=== PATIENT | female | born 1995 | race African-American/Black ===

== ENCOUNTER 2017-02-10 09:15 | Emergency (ER) | payer MEDICAID, OTHER ==
[~2017-02-10] VITALS: Ht 180.3 cm; Wt 63.0 kg
[2017-02-10] MEDS ORDERED: LIDOCAINE HCL 1% 20ML VIAL (Pyxis) INJ MC ONE (10:00)
[2017-02-10] MEDS ORDERED: BACITRACIN ZINC OINT UDPKT TOP ONE (10:00)
[2017-02-10] MEDS ORDERED: ACETAMINOPHEN WITH CODEINE 300/30MG TABLET PO ONE (10:00)
[2017-02-10] MEDS ORDERED: TETANUS, DIPHTHERIA, PERTUSSIS VAC/PF 0.5ML (>7YR OLD) IM ONE (10:00)
[2017-02-10 10:30] VITALS: BP 117/60
== END 2017-02-10 11:20 | disposition home or self-care (01) ==
LOC: ER 09:49
DX: S01.412A Laceration without foreign body of left cheek and temporomandibular area, initial encounter (principal); X58.XXXA Exposure to other specified factors, initial encounter; Y93.89 Activity, other specified; Y92.89 Other specified places as the place of occurrence of the external cause; Y99.8 Other external cause status
CPT/HCPCS: 12011; 90471; 90715; 99284; J3490; X7700; Z7610

== ENCOUNTER 2017-02-20 10:29 | Emergency (ER) | payer MEDICAID ==
[~2017-02-20] VITALS: Ht 180.3 cm; Wt 64.0 kg
[2017-02-20 11:10] VITALS: BP 101/54
== END 2017-02-20 11:45 | disposition home or self-care (01) ==
LOC: ER 10:29
DX: Z48.02 Encounter for removal of sutures (principal)
CPT/HCPCS: 99281

== ENCOUNTER 2018-01-13 22:44 | Emergency (ER) | payer MEDICAID ==
[~2018-01-13] VITALS: Ht 180.3 cm; Wt 75.0 kg
[2018-01-14] MEDS ORDERED: DICYCLOMINE 10 MG/5 ML ORAL SYR PO STA (01:35)
[2018-01-14] MEDS ORDERED: MAGNESIUM/ALUMINUM HYDROXIDE/SIMETHICONE 30ML UDC PO STA (01:35)
[2018-01-14] MEDS ORDERED: PYRIDOXINE 100 MG/ML 1ML IM ONE (01:45)
[2018-01-14] MEDS ORDERED: SODIUM CHLORIDE 0.9% 1000ML BAG (SEPSIS BOLUS) IV ONE (01:45)
[2018-01-14 02:20] LABS: BASOPHILS % 0.2 % (0.0-2.0); HEMATOCRIT. 40.9 % (36.0-48.0); HEMOGLOBIN. 14.5 g/dL (12.0-16.0); LYMPHOCYTES % 14.1 % (20.0-50.0); MEAN CORPUSCULAR HEMOGLOBIN 31.3 pg (28.0-32.0); MEAN CORPUSCULAR VOLUME 88.1 fL (81.0-99.0); MEAN PLATELET VOLUME 8.5 fl (7.4-10.4); MONOCYTES % 2.1 % (2.0-8.0); NEUTROPHILS % 83.6 % (40.0-76.0); PLATELET 246 x1000/uL (130-400); RED BLOOD CELL COUNT 4.64 mill/uL (4.2-5.4)
[2018-01-14 02:42] LABS: CHLORIDE 104 mEq/L (98-107)
[2018-01-14 02:46] LABS: ETHANOL BLOOD < 10 mg/dL
[2018-01-14 02:51] LABS: CLARITY URINE CLEAR (CLEAR); COLOR URINE DARK YELLOW (YELLOW); KETONES URINE 4+ (NEGATIVE); LEUKOCYTE ESTERASE URINE TRACE (NEGATIVE); NITRITE URINE NEGATIVE (NEGATIVE); OCCULT BLOOD URINE NEGATIVE (NEGATIVE); PH URINE 6.5 (4.5-8.0); PROTEIN URINE 1+ (NEGATIVE); SPECIFIC GRAVITY URINE 1.037 (1.005-1.030)
[2018-01-14] MEDS ORDERED: PYRIDOXINE HCL 50MG TABLET PO NR ×2 (03:00→04:30)
[2018-01-14] MEDS ORDERED: NITROFURANTOIN 100MG M/M CAPSULE PO NR (03:00)
[2018-01-14 03:05] LABS: B-HCG QUANTITATIVE 46343 mIU/mL (<3)
[2018-01-14 03:14] LABS: *AMPHETAMINES SCREEN URINE NEGATIVE (NEGATIVE); *BARBITURATES SCREEN URINE NEGATIVE (NEGATIVE); *BENZODIAZEPINES SCREEN URINE NEGATIVE (NEGATIVE)
[2018-01-14 03:15] LABS: METHADONE URINE SCREEN NEGATIVE (NEGATIVE); OPIATES URINE SCREEN NEGATIVE (NEGATIVE); PHENCYCLIDINE URINE SCREEN NEGATIVE (NEGATIVE)
[2018-01-14 03:21] LABS: *COCAINE SCREEN URINE PRESUMTIVE POSITIVE (NEGATIVE); CANNABINOID URINE SCREEN PRESUMTIVE POSITIVE (NEGATIVE)
[2018-01-14] MEDS ORDERED: PYRIDOXINE HCL 50MG TABLET PO ONE ×2 (03:45)
[2018-01-14 04:20] VITALS: BP 103/79
== END 2018-01-14 03:00 | disposition home or self-care (01) ==
LOC: ER 22:44
DX: O21.0 Mild hyperemesis gravidarum (principal); O23.42 Unspecified infection of urinary tract in pregnancy, second trimester; O99.322 Drug use complicating pregnancy, second trimester; F14.10 Cocaine abuse, uncomplicated; F12.10 Cannabis abuse, uncomplicated; Z3A.14 14 weeks gestation of pregnancy
CPT/HCPCS: 36415; 80053; 80305; 81003; 84702; 85025; 96360; 99284; G0482; J7030; Z7610; J3415

== ENCOUNTER 2019-02-17 12:45 | Emergency (ER) | payer SELFPAY ==
[~2019-02-17] VITALS: Ht 167.6 cm; Wt 86.0 kg
[2019-02-17 12:52] VITALS: BP 136/63
== END 2019-02-17 17:09 | disposition left against medical advice (07) ==
LOC: ER 12:45
DX: Z53.21 Procedure and treatment not carried out due to patient leaving prior to being seen by health care provider (principal)